=== PATIENT | male | born 2000 | race African-American/Black ===

== ENCOUNTER 2020-06-19 15:45 | Emergency (ER) | payer OTHER ==
[~2020-06-19] VITALS: Ht 172.7 cm; Wt 65.3 kg
[2020-06-19 16:56] VITALS: BP 119/74
== END 2020-06-19 17:02 | disposition home or self-care (01) ==
LOC: ER 15:45
DX: M54.2 Cervicalgia (principal); M79.605 Pain in left leg; M25.512 Pain in left shoulder; Z88.0 Allergy status to penicillin; V49.88XA Car occupant (driver) (passenger) injured in other specified transport accidents, initial encounter; Y93.89 Activity, other specified; Y92.413 State road as the place of occurrence of the external cause; Y99.9 Unspecified external cause status